=== PATIENT | male | born 1970 | race American Indian/Alaskan Native ===

== ENCOUNTER 2017-01-17 14:53 | Inpatient (IN) | payer SELFPAY ==
[2017-01-17 15:15] LABS: Urine Drugs of Abuse Note Disclamer
--- NOTE | 2017-01-17 15:29 | Emergency Department Report ---
<[email or web address] - Last Filed: 01/18/17 02:11> ED General Adult HPI - General Chief complaint: Psych Stated complaint: EVAL/101 Time Seen by Provider: 01/17/17 15:28 - Related Data Home Medications Medication Instructions Recorded Confirmed Last Taken No Known Home Medications [No 01/18/17 01/18/17 Unknown Reported Home Medications] Allergies Allergy/AdvReac Type Severity Reaction Status Date / Time No Known Allergies Allergy Unverified 06/26/14 09:07 ED Review of Systems ROS: Stated complaint: EVAL/1013 Other details as noted in HPI ED Past Medical Hx - Medications Home Medications: Home Medications Medication Instructions Recorded Confirmed Last Taken Type No Known Home Medications [No 01/18/17 01/18/17 Unknown History Reported Home Medications] ED Course Vital Signs 01/17/17 01/17/17 01/17/17 15:06 15:19 22:21 Temperature 98.9 F 98.1 F Pulse Rate 105 H 85 Respiratory 20 20 20 Rate Blood Pressure 145/92 137/68 [Left] O2 Sat by Pulse 98 98 97 Oximetry 01/17/17 01/18/17 22:22 09:00 Temperature 97.8 F Pulse Rate 73 Respiratory 20 14 Rate Blood Pressure 100/58 [Left] O2 Sat by Pulse 97 97 Oximetry - Reevaluation(s) Reevaluation #4: 01/18/17 01:38 Patient sleeping comfortably trending up slightly of CK but does not have periods of being in any distress MULTIPLE fluid replacement potassium as needed recheck CK. ED Medical Decision Making - Lab Data Result diagrams: 01/17/17 19:35 01/17/17 15:52 Critical care attestation.: If time is entered above; I have spent that time in minutes in the direct care of this critically ill patient, excluding procedure time. ED Disposition Clinical Impression: Rhabdomyolysis, Crack cocaine use Disposition: DC-09 OP ADMIT IP TO THIS HOSP Is pt being admited?: Yes Does the pt Need Aspirin: No Condition: Stable <MARIBELL CORDOVA - Last Filed: 01/19/17 01:32> ED General Adult HPI - General Source: patient, police, EMS (ems notes not available at time of chart dictation), RN notes reviewed, old records reviewed Mode of arrival: Ambulatory Limitations: Other (patient's psychotic and has crack cocaine intoxication) - History of Present Illness Initial comments: This is a 46-year-old male. He has a past medical history of cocaine and crack abuse, and is undomiciled. The patient is brought to the hospital by local police department for evaluation of homicidality and suicidality. As per enclosed documentation, the patient has ingested 7 g of crack, and is endorsing homicidal and suicidal thoughts. To me, the patient denies headache, neck pain, chest pain, abdominal pain and shortness of breath. He requested to eat. He cannot describe exacerbating or relieving factors. -: Gradual Severity scale (0 -10): 0 Quality: other (per hpi) Consistency: other (per hpi) Improves with: other (per hpi) Worsens with: other (per hpi) Associated Symptoms: denies: chest pain ED Review of Systems Constitutional: denies: fever Eyes: denies: vision change ENT: denies: epistaxis Respiratory: denies: cough Cardiovascular: denies: chest pain Gastrointestinal: denies: abdominal pain Genitourinary: denies: dysuria Musculoskeletal: denies: arthralgia Neurological: denies: weakness Psychiatric: homicidal thoughts, suicidal thoughts ED Past Medical Hx - Past Medical History Hx Psychiatric Treatment: Yes - Surgical History Additional Surgical History: denies - Social History Smoking Status: Current Some Day Smoker Substance Use Type: Alcohol, Cocaine ED Physical Exam - General Limitations: Other General appearance: alert, in no apparent distress - Head Head exam: Present: atraumatic, normocephalic - Eye Eye exam: Present: normal appearance, EOMI. Absent: nystagmus - ENT ENT exam: Present: normal exam, normal orophraynx, mucous membranes moist, normal external ear exam - Neck Neck exam: Present: normal inspection, full ROM. Absent: tenderness, meningismus - Respiratory Respiratory exam: Present: normal lung sounds bilaterally. Absent: respiratory distress, wheezes, rales, rhonchi, stridor, chest wall tenderness, accessory muscle use, decreased breath sounds, prolonged expiratory - Cardiovascular Cardiovascular Exam: Present: regular rate, normal rhythm, normal heart sounds. Absent: bradycardia, tachycardia, irregular rhythm, systolic murmur, diastolic murmur, rubs, gallop - GI/Abdominal GI/Abdominal exam: Present: soft, normal bowel sounds. Absent: distended, tenderness, guarding, rebound, rigid, pulsatile mass - Rectal Rectal exam: Present: deferred - Extremities Exam Extremities exam: Present: normal inspection, full ROM, normal capillary refill , other (there are 2+ pulses in the bilateral upper and lower extremities. The compartments are soft. There is no redness, pus or streaking.). Absent: pedal edema, joint swelling, calf tenderness - Back Exam Back exam: Present: normal inspection, full ROM. Absent: tenderness, CVA tenderness (R), CVA tenderness (L), muscle spasm, paraspinal tenderness, vertebral tenderness - Neurological Exam Neurological exam: Present: alert, normal gait, other (Extraocular movements intact. Tongue midline. No facial droop. Facial sensation intact to light touch in the V1, V2, V3 distribution bilaterally. 5 and 5 strength in 4 extremities.. Sensation is intact to light touch in 4 extremities.). Absent: motor sensory deficit - Psychiatric Psychiatric exam: Present: anxious, homicidal ideation, suicidal ideation - Skin Skin exam: Present: warm, dry, intact, normal color. Absent: rash ED Course - Reevaluation(s) Reevaluation #1: 01/17/17 19:32 Differential diagnosis: Crack cocaine intoxication, myositis, rhabdomyolysis, paranoia, medical clearance for psychiatric placement Assessment and plan: 46-year-old male who is homicidal and suicidal, GCS of 15, and her score of 0, walks with a steady gait, also has elevated CK of over 3000. His compartments are soft. There is no redness, pus or streaking. Compartments syndrome very unlikely, patient will be given IV fluids, repeat creatinine kinase is ordered. He requires a 1013. Elevated white blood cell count is appreciated, this may be a stress emargination, or may be related to his recent sympathomimetic ingestion. He is not febrile, does not have a cough, is not encephalopathic, has no neck pain or neck stiffness, has no sore throat, has no pharyngeal discharge, does not have irritative or obstructive urinary symptoms, has an unremarkable urinalysis, and has an unremarkable pulmonary examination. Therefore, I think that serious bacterial infection/sepsis is very unlikely. Reevaluation #2: 01/17/17 20:25 cbc decreased ck pending care transferred to Dr Sepulveda, who will follow up on repeat ck and order additional fluids if necessary he will contact crisis once patient is medically cleared Reevaluation #3: 01/17/17 20:30 ck increasing. additional fluids ordered Dr Sepulveda to follow up ED Medical Decision Making - Lab Data Result diagrams: 01/17/17 19:35 01/18/17 01:43 Vital Signs 01/17/17 01/17/17 15:06 15:19 Temperature 98.9 F Pulse Rate 105 H Respiratory 20 20 Rate Blood Pressure 145/92 [Left] O2 Sat by Pulse 98 98 Oximetry Vital Signs 01/17/17 01/17/17 15:06 15:19 Temperature 98.9 F Pulse Rate 105 H Respiratory 20 20 Rate Blood Pressure 145/92 [Left] O2 Sat by Pulse 98 98 Oximetry Lab Results 01/17/17 01/17/17 01/17/17 Range/Units 15:09 15:09 15:52 WBC (4.5-11.0) K/mm3 RBC (3.65-5.03) M/mm3 Hgb (11.8-15.2) gm/dl Hct (35.5-45.6) % MCV (84-94) fl MCH (28-32) pg MCHC (32-34) % RDW (13.2-15.2) % Plt Count (140-440) K/mm3 Lymph % (Auto) (13.4-35.0) % [place] % (Auto) (0.0-7.3) % Eos % (Auto) (0.0-4.3) % Baso % (Auto) (0.0-1.8) % Lymph # (1.2-5.4) K/mm3 [place] # (0.0-0.8) K/mm3 Eos # (0.0-0.4) K/mm3 Baso # (0.0-0.1) K/mm3 Seg Neutrophils % (40.0-70.0) % Seg Neutrophils # (1.8-7.7) K/mm3 Sodium 140 (137-145) mmol/L Potassium 3.8 (3.6-5.0) mmol/L Chloride 95.2 L (98-107) mmol/L Carbon Dioxide 28 (22-30) mmol/L Anion Gap 21 mmol/L BUN 28 H (9-20) mg/dL Creatinine 1.4 (0.8-1.5) mg/dL Estimated GFR > 60 ml/min BUN/Creatinine Ratio 20.00 % Glucose 97 (75-100) mg/dL Calcium 9.2 (8.4-10.2) mg/dL Total Creatine Kinase (55-170) units/L Urine Color Yellow (Yellow) Urine Turbidity Clear (Clear) Urine pH 5.0 (5.0-7.0) Ur Specific [place] 1.027 (1.003-1.030) Urine Protein 100 mg/dl (Negative) mg/dL Urine Glucose (UA) Neg (Negative) mg/dL Urine Ketones Neg (Negative) mg/dL Urine Blood Lg (Negative) Urine Nitrite Neg (Negative) Urine Bilirubin Neg (Negative) Urine Urobilinogen < 2.0 (<2.0) mg/dL Ur Leukocyte Esterase Neg (Negative) Urine WBC (Auto) 1.0 (0.0-6.0) /HPF Urine RBC (Auto) 9.0 (0.0-6.0) /HPF Salicylates (2.8-20.0) mg/dL Urine Opiates Screen Presumptive negative Urine Methadone Screen Presumptive negative Acetaminophen (10.0-30.0) ug/mL Ur Barbiturates Screen Presumptive negative Ur Phencyclidine Scrn Presumptive negative Ur Amphetamines Screen Presumptive negative U Benzodiazepines Scrn Presumptive negative Urine Cocaine Screen Presumptive positive U Marijuana (THC) Screen Presumptive negative Drugs of Abuse Note Disclamer Plasma/Serum Alcohol (0-0.07) gm% 01/17/17 01/17/17 01/17/17 Range/Units 15:52 15:52 15:52 WBC 19.5 H (4.5-11.0) K/mm3 RBC 4.50 (3.65-5.03) M/mm3 Hgb 12.7 (11.8-15.2) gm/dl Hct 38.8 (35.5-45.6) % MCV 86 (84-94) fl MCH 28 (28-32) pg MCHC 33 (32-34) % RDW 13.8 (13.2-15.2) % Plt Count 209 (140-440) K/mm3 Lymph % (Auto) 13.4 (13.4-35.0) % [place] % (Auto) 10.3 H (0.0-7.3) % Eos % (Auto) 0.0 (0.0-4.3) % Baso % (Auto) 0.3 (0.0-1.8) % Lymph # 2.6 (1.2-5.4) K/mm3 [place] # 2.0 H (0.0-0.8) K/mm3 Eos # 0.0 (0.0-0.4) K/mm3 Baso # 0.1 (0.0-0.1) K/mm3 Seg Neutrophils % 76.0 H (40.0-70.0) % Seg Neutrophils # 14.8 H (1.8-7.7) K/mm3 Sodium (137-145) mmol/L Potassium (3.6-5.0) mmol/L Chloride (98-107) mmol/L Carbon Dioxide (22-30) mmol/L Anion Gap mmol/L BUN (9-20) mg/dL Creatinine (0.8-1.5) mg/dL Estimated GFR ml/min BUN/Creatinine Ratio % Glucose (75-100) mg/dL Calcium (8.4-10.2) mg/dL Total Creatine Kinase 3441 H (55-170) units/L Urine Color (Yellow) Urine Turbidity (Clear) Urine pH (5.0-7.0) Ur Specific [place] (1.003-1.030) Urine Protein (Negative) mg/dL Urine Glucose (UA) (Negative) mg/dL Urine Ketones (Negative) mg/dL Urine Blood (Negative) Urine Nitrite (Negative) Urine Bilirubin (Negative) Urine Urobilinogen (<2.0) mg/dL Ur Leukocyte Esterase (Negative) Urine WBC (Auto) (0.0-6.0) /HPF Urine RBC (Auto) (0.0-6.0) /HPF Salicylates (2.8-20.0) mg/dL Urine Opiates Screen Urine Methadone Screen Acetaminophen (10.0-30.0) ug/mL Ur Barbiturates Screen Ur Phencyclidine Scrn Ur Amphetamines Screen U Benzodiazepines Scrn Urine Cocaine Screen U Marijuana (THC) Screen Drugs of Abuse Note Plasma/Serum Alcohol < 0.01 (0-0.07) gm% 01/17/17 01/17/17 Range/Units 15:52 15:52 WBC (4.5-11.0) K/mm3 RBC (3.65-5.03) M/mm3 Hgb (11.8-15.2) gm/dl Hct (35.5-45.6) % MCV (84-94) fl MCH (28-32) pg MCHC (32-34) % RDW (13.2-15.2) % Plt Count (140-440) K/mm3 Lymph % (Auto) (13.4-35.0) % [place] % (Auto) (0.0-7.3) % Eos % (Auto) (0.0-4.3) % Baso % (Auto) (0.0-1.8) % Lymph # (1.2-5.4) K/mm3 [place] # (0.0-0.8) K/mm3 Eos # (0.0-0.4) K/mm3 Baso # (0.0-0.1) K/mm3 Seg Neutrophils % (40.0-70.0) % Seg Neutrophils # (1.8-7.7) K/mm3 Sodium (137-145) mmol/L Potassium (3.6-5.0) mmol/L Chloride (98-107) mmol/L Carbon Dioxide (22-30) mmol/L Anion Gap mmol/L BUN (9-20) mg/dL Creatinine (0.8-1.5) mg/dL Estimated GFR ml/min BUN/Creatinine Ratio % Glucose (75-100) mg/dL Calcium (8.4-10.2) mg/dL Total Creatine Kinase (55-170) units/L Urine Color (Yellow) Urine Turbidity (Clear) Urine pH (5.0-7.0) Ur Specific [place] (1.003-1.030) Urine Protein (Negative) mg/dL Urine Glucose (UA) (Negative) mg/dL Urine Ketones (Negative) mg/dL Urine Blood (Negative) Urine Nitrite (Negative) Urine Bilirubin (Negative) Urine Urobilinogen (<2.0) mg/dL Ur Leukocyte Esterase (Negative) Urine WBC (Auto) (0.0-6.0) /HPF Urine RBC (Auto) (0.0-6.0) /HPF Salicylates < 0.3 L (2.8-20.0) mg/dL Urine Opiates Screen Urine Methadone Screen Acetaminophen < 15.0 (10.0-30.0) ug/mL Ur Barbiturates Screen Ur Phencyclidine Scrn Ur Amphetamines Screen U Benzodiazepines Scrn Urine Cocaine Screen U Marijuana (THC) Screen Drugs of Abuse Note Plasma/Serum Alcohol (0-0.07) gm% ED Disposition Is pt being admited?: Yes Does the pt Need Aspirin: No
[2017-01-17 15:38] LABS: Bilirubin,Urine NEG (Negative); Blood,Urine LG (Negative); Ketones,Urine NEG (Negative); Leukocyte Esterase,Urine NEG (Negative); Nitrite,Urine NEG (Negative); Urobilinogen,Urine < 2.0 mg/dL (<2.0)
[2017-01-17 16:12] LABS: Basophils % (Auto) 0.3 % (0.0-1.8); Hematocrit 38.8 % (35.5-45.6); Hemoglobin 12.7 gm/dl (11.8-15.2); Mean Corpuscular HGB Conc 33 % (32-34); Mean Corpuscular Hemoglobin 28 pg (28-32); Mean Corpuscular Volume 86 fl (84-94); Platelet Count 209 K/mm3 (140-440); Red Cell Distribution Width 13.8 % (13.2-15.2); White Blood Count 19.5 K/mm3 (4.5-11.0)
[2017-01-17 16:29] LABS: Anion Gap 21 mmol/L; Blood Urea Nitrogen 28 mg/dL (9-20); Calcium 9.2 mg/dL (8.4-10.2); Carbon Dioxide 28 mmol/L (22-30); Chloride 95.2 mmol/L (98-107); Glucose 97 mg/dL (75-100); Potassium 3.8 mmol/L (3.6-5.0); Sodium 140 mmol/L (137-145)
[2017-01-17] MEDS ORDERED: ATIVAN IM PRN (17:28)
[2017-01-17] MEDS ORDERED: NACL 0.9% 1000 ML 2,000 ML IV ONE ×2 (17:28→20:29)
[2017-01-17 20:01] LABS: Hematocrit 36.7 % (35.5-45.6); Mean Corpuscular HGB Conc 33 % (32-34); Mean Corpuscular Hemoglobin 28 pg (28-32); Mean Corpuscular Volume 85 fl (84-94); Platelet Count 183 K/mm3 (140-440); Red Blood Count 4.31 M/mm3 (3.65-5.03)
[2017-01-18] MEDS ORDERED: NACL 0.9% 1000 ML 1,000 ML IV ONE (01:02)
[2017-01-18 02:29] LABS: Anion Gap 14 mmol/L; Blood Urea Nitrogen 20 mg/dL (9-20); Carbon Dioxide 24 mmol/L (22-30); Chloride 106.7 mmol/L (98-107); Glucose 116 mg/dL (75-100); Potassium 3.8 mmol/L (3.6-5.0); Sodium 141 mmol/L (137-145)
[2017-01-18 02:47] LABS: Calcium 7.8 mg/dL (8.4-10.2)
[2017-01-18] MEDS ORDERED: DULCOLAX PR PRN (10:00)
[2017-01-18] MEDS ORDERED: ZOFRAN IV PRN (10:00)
[2017-01-18] MEDS ORDERED: MILK OF MAGNESIA PO PRN (10:00)
[2017-01-18] MEDS ORDERED: TYLENOL PO PRN (10:00)
[2017-01-18] MEDS: HEPARIN SUB-Q SCH ×2 (10:44→17:02)
--- NOTE | 2017-01-18 11:57 | History and Physical Report ---
History of Present Illness Date of examination: 01/18/17 Date of admission: 01/18/17 06:51 Chief complaint: History of crack use and exhibiting homicidal and suicidal ideations History of present illness: 46-year-old -British male with no known past medical conditions except depression for which he never sought any medical attention, was apparently picked up by the police after using 7 g of crack cocaine and subsequently exhibiting suicidal and homicidal ideations. He was noted to have increased CPK and elevated white blood cell count and is now admitted for management of possible rhabdomyolysis. He is under 1013. At this time patient is fully alert and oriented and offers no specific complaints he denies any suicidal or homicidal ideations. He denies any fever or chills sore throat dysphagia nasal congestion or headaches or weight loss Denies any dizziness or loss of consciousness Denies any exertional chest pain palpitations Denies cough or shortness of breath Denies abdominal pain nausea or vomiting or melena Denies any dysuria or urinary frequency or incontinence Past History Past Medical History: No medical history Past Surgical History: No surgical history Social history: smoking, other (crack cocaine). denies: alcohol abuse Family history: no significant family history Medications and Allergies Allergies Allergy/AdvReac Type Severity Reaction Status Date / Time No Known Allergies Allergy Unverified 06/26/14 09:07 Home Medications Medication Instructions Recorded Confirmed Last Taken Type No Known Home Medications [No 01/18/17 01/18/17 Unknown History Reported Home Medications] Active Meds: Active Medications Acetaminophen (Tylenol) 650 mg PO Q4H PRN PRN Reason: Pain MILD(1-3)/Fever >100.5/MONTERROSO Bisacodyl (Dulcolax) 10 mg VA QDAY PRN PRN Reason: Constipation unrelieved by MOM Heparin Sodium (Porcine) (Heparin) 5,000 unit SUB-Q Q8H FELIPE Last Admin: 01/18/17 10:44 Dose: Not Given Sodium Chloride (Nacl 0.9% 1000 Ml) 1,000 mls @ 150 mls/hr IV DIRECT FELIPE Lorazepam (Ativan) 2 mg IM Q4HR PRN PRN Reason: Agitation Last Admin: 01/17/17 17:43 Dose: 2 mg Magnesium Hydroxide (Milk Of Magnesia) 30 ml PO Q4H PRN PRN Reason: Constipation Ondansetron HCl (Zofran) 4 mg IV Q8H PRN PRN Reason: N/V unrelieved by Reglan Sertraline HCl (Zoloft) 50 mg PO QDAY FELIPE Review of Systems All systems: negative (as stated above in the history of present illness) Exam - Constitutional Vitals: Temp Pulse Resp BP Pulse Ox 98.2 F 75 20 91/59 97 01/18/17 10:21 01/18/17 10:21 01/18/17 10:21 01/18/17 10:21 01/18/17 10:21 General appearance: Present: no acute distress, well-nourished - EENT Eyes: Present: PERRL, EOM intact ENT: hearing intact, clear oral mucosa, no thrush - Neck Neck: Present: supple, normal ROM. Absent: masses or JVD - Respiratory Respiratory effort: normal Respiratory: bilateral: CTA - Cardiovascular Rhythm: regular Heart Sounds: Present: S1 & S2 - Extremities Extremities: No edema - Abdominal General gastrointestinal: Present: soft, non-tender. Absent: hepatomegaly, splenomegaly - Rectal Rectal Exam: deferred - Integumentary Integumentary: Present: clear - Musculoskeletal Musculoskeletal: strength equal bilaterally - Psychiatric Psychiatric: appropriate mood/affect - Neurologic Neurologic: CNII-XII intact, no focal deficits Results - Labs CBC & Chem 7: 01/17/17 19:35 01/18/17 01:43 Assessment and Plan - Patient Problems (1) Rhabdomyolysis Current Visit: Yes Status: Acute Qualifiers: Rhabdomyolysis type: R Encounter type: E Plan to address problem: Continue IV fluids with normal saline and monitor CPK (2) Neutrophilic leukocytosis Current Visit: Yes Status: Acute Plan to address problem: Trending down Likely acute phase reactant No evidence of any infection Monitor CBC (3) Depression Current Visit: Yes Status: Chronic Qualifiers: Depression Type: major depressive disorder Major depression recurrence: single episode Major depression episode severity: moderate Psychotic features: P Trimester: T Plan to address problem: We will start the patient on SSRI and we will request psychiatry evaluation Patient denies any suicidal or homicidal ideations at this time (4) Crack cocaine use Current Visit: Yes Status: Acute Plan to address problem: We will request psychiatric evaluation
[2017-01-18] MEDS: HABITROL TD SCH ×3 (12:25→14:51)
[2017-01-18] MEDS: ZOLOFT PO SCH (12:25)
[2017-01-18] MEDS: NACL 0.9% 1000 ML 1,000 ML IV SCH (20:50)
--- NOTE | 2017-01-18 22:46 | Consultation ---
History of Present Illness - Reason for Consult Consult date: 01/18/17 Reason for consult: homicidal ideation - Chief Complaint Chief complaint: "depressed" This is a 46-year-old male. He has a past medical history of cocaine and crack abuse, and is undomiciled. The patient is brought to the hospital by local police department for evaluation of homicidality and suicidality. He reports going to a rehab and when interviewed for the program, he was recommended to go to the ER. He has been admitted for rhabdomyolsis. Per the record the patient has ingested 7 g of crack, and is endorsing homicidal and suicidal thoughts. 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 He reports AVH occurring with increasing crack/cocaine use. He reports using it daily. He reports depression, isolation, and has homicidal ideation toward people who seem to be "purposeless."He denies wanting to harm someone specifically or having a plan. He reports paranoia and was observed looking around the room intermittently. He states his anger is a problem. He plans to return to [facility]. He went previously for similar reasons, crack/cocaine addiction. He denies use of alcohol or other substance use. He is not sure if he wants medication for mood. Medications and Allergies Allergies Allergy/AdvReac Type Severity Reaction Status Date / Time No Known Allergies Allergy Unverified 06/26/14 09:07 Home Medications Medication Instructions Recorded Confirmed Last Taken Type No Known Home Medications [No 01/18/17 01/18/17 Unknown History Reported Home Medications] Active Meds: Active Medications Acetaminophen (Tylenol) 650 mg PO Q4H PRN PRN Reason: Pain MILD(1-3)/Fever >100.5/MONTERROSO Bisacodyl (Dulcolax) 10 mg PA QDAY PRN PRN Reason: Constipation unrelieved by MOM Heparin Sodium (Porcine) (Heparin) 5,000 unit SUB-Q Q8H FELIPE Last Admin: 01/18/17 17:02 Dose: Not Given Sodium Chloride (Nacl 0.9% 1000 Ml) 1,000 mls @ 150 mls/hr IV DIRECT FELIPE Last Admin: 01/18/17 20:50 Dose: 150 mls/hr Lorazepam (Ativan) 2 mg IM Q4HR PRN PRN Reason: Agitation Last Admin: 01/17/17 17:43 Dose: 2 mg Magnesium Hydroxide (Milk Of Magnesia) 30 ml PO Q4H PRN PRN Reason: Constipation Nicotine (Habitrol) 21 mg TD Q24H [facility] Last Admin: 01/18/17 14:51 Dose: Not Given Ondansetron HCl (Zofran) 4 mg IV Q8H PRN PRN Reason: N/V unrelieved by Reglan Sertraline HCl (Zoloft) 50 mg PO QDAY [facility] Last Admin: 01/18/17 12:25 Dose: 50 mg Past psychiatric history - Past Medical History Past Medical History: No medical history Past Surgical History: No surgical history Mental Status Exam - Vital signs Last Vital Signs Temp 0 F L 01/18/17 21:00 Pulse 74 01/18/17 21:00 Resp 20 01/18/17 21:00 BP 115/72 01/18/17 21:00 Pulse Ox 97 01/18/17 21:00 Results Result Diagrams: 01/17/17 19:35 01/18/17 01:43 All other labs normal. Assessment and Plan Assessment and plan: - Exam Narrative exam: + depression, aloof Orientation: person, place, time Affect: constricted Mood: irritable, depression Thought content: homicidal ideation Perceptions: AVH of hearing people have sex and seeing a woman Speech: regular rate and rhythm Level of consciousness: alert Interaction: cooperative Impression: daily crack/cocaine use homicidal ideation-no plan or target Substance induced mood disorder/psychosis Differential diagnosis: major depressive disorder, bipolar disorder Recommendation: Start SEroquel 50mg hs for mood and psychotic symptoms. Risks and benefits explained. Metabolic effects are a risk and this was explained. [address] Transfer to psychiatric facility once medically cleared.
[2017-01-19] MEDS: HEPARIN SUB-Q SCH ×3 (01:57→17:15)
[2017-01-19] MEDS: NACL 0.9% 1000 ML 1,000 ML IV SCH ×4 (03:02→22:45)
[2017-01-19 05:30] LABS: Eosinophils % (Auto) 2.2 % (0.0-4.3); Hematocrit 34.6 % (35.5-45.6); Hemoglobin 11.6 gm/dl (11.8-15.2); Mean Corpuscular HGB Conc 34 % (32-34); Mean Corpuscular Hemoglobin 29 pg (28-32); Mean Corpuscular Volume 86 fl (84-94); Platelet Count 165 K/mm3 (140-440); Red Blood Count 4.03 M/mm3 (3.65-5.03); Red Cell Distribution Width 13.7 % (13.2-15.2); White Blood Count 7.8 K/mm3 (4.5-11.0)
[2017-01-19 05:38] LABS: Anion Gap 13 mmol/L; BUN/Creatinine Ratio 12.22; Blood Urea Nitrogen 11 mg/dL (9-20); Calcium 8.1 mg/dL (8.4-10.2); Carbon Dioxide 28 mmol/L (22-30); Chloride 105.4 mmol/L (98-107); Creatine Kinase 1883 units/L (55-170); Glucose 91 mg/dL (75-100); Sodium 142 mmol/L (137-145)
[2017-01-19] MEDS: ZOLOFT PO SCH (09:33)
--- NOTE | 2017-01-19 10:11 | Discharge Summary ---
Providers - Providers Date of Admission: 01/18/17 06:51 Date of discharge: 01/20/17 Attending physician: COLTON EVANGELISTA MD Primary care physician: [facility] Hospitalization Reason for admission: rhabdomyolysis, drug abuse Condition: Stable Disposition: DC-30 STILL A PATIENT Time spent for discharge: 31 minutes - Discharge Diagnoses (1) Crack cocaine use Status: Acute (2) Neutrophilic leukocytosis Status: Acute (3) Rhabdomyolysis Status: Acute Qualifiers: Rhabdomyolysis type: R Encounter type: E (4) Depression Status: Chronic Qualifiers: Depression Type: major depressive disorder Major depression recurrence: single episode Active/Remission status: A Major depression episode severity : moderate Psychotic features: P Trimester: T Qualified Code(s): F32.1 - Major depressive disorder, single episode, moderate Core Measure Documentation - Palliative Care Palliative Care/ Comfort Measures: Not Applicable - Core Measures Any of the following diagnoses?: none Exam - Constitutional Vitals: Temp Pulse Resp BP Pulse Ox 0 F L 70 20 115/72 97 01/18/17 21:00 01/19/17 08:00 01/18/17 21:00 01/18/17 21:00 01/18/17 21:00 Plan Activity: no restrictions Weight Bearing Status: Full Weight Bearing Diet: regular Special Instructions: smoking cessation Follow up with: AMARA RIVERA MD [Primary Care Provider] - 3-5 Days Prescriptions: QUEtiapine [SEROquel] 50 mg PO QHS #30 tablet Nicotine [Habitrol] 21 mg TD Q24H #7 patch Sertraline [Zoloft] 50 mg PO QDAY #30 tablet
[2017-01-19] MEDS: HABITROL TD SCH (15:27)
--- NOTE | 2017-01-19 22:20 | Progress Note ---
Subjective - Reason for Consult Consult date: 01/19/17 Reason for consult: follow up - Chief Complaint Chief complaint: "My thoughts are clear" This is a 46-year-old male. He has a past medical history of cocaine and crack abuse, and is undomiciled. The patient was brought to the hospital by local police department for evaluation of homicidality and suicidality. He reports going to a rehab and when interviewed for the program, he was recommended to go to the ER. He has been admitted for rhabdomyolsis. He initially reported vague homicidal ideation. He reported AVH occurring with increasing crack/cocaine use. He reports using it daily. He denies wanting to harm someone specifically or having a plan. He states his anger is a problem. He plans to return to [facility]. He went previously for similar reasons, crack/cocaine addiction. He denies use of alcohol or other substance use. He reports continued difficulty sleeping and no response to Seroquel 50mg hs. Mental Status Exam - Vital signs Last Vital Signs Temp 98.7 F 01/19/17 20:59 Pulse 78 01/19/17 20:59 Resp 18 01/19/17 20:59 BP 114/74 01/19/17 20:59 Pulse Ox 97 01/19/17 20:59 Assessment and Plan - Exam Narrative exam: + depression Orientation: person, place, time Affect: constricted Mood: less irritable Thought content: no homicidal ideation today. No suicidal ideation. Perceptions: No reports of AVH today Speech: regular rate and rhythm Level of consciousness: alert Interaction: cooperative Impression: daily crack/cocaine use No SI/HI today Substance induced mood disorder/psychosis Differential diagnosis: major depressive disorder, bipolar disorder Recommendation: Increase Seroquel to 100mg hs for mood [address] Will reevaluate tomorrow to determine appropriate disposition
[2017-01-20] MEDS: HEPARIN SUB-Q SCH ×2 (02:32→10:45)
--- NOTE | 2017-01-20 07:28 | Progress Note ---
Assessment and Plan Assessment and plan: Rhabdomyolysis - Rsolved - Was treated with IV fluids Crack cocaine use - patient counselled - Psych consult appreciated Major depression - patient started with antidepressants Leukocytosis - Likely reactive resolved Disposition - He is on 1013 - Per Psych, patient is medically cleared - Patient Problems (1) Crack cocaine use Current Visit: Yes Status: Acute (2) Neutrophilic leukocytosis Current Visit: Yes Status: Acute (3) Rhabdomyolysis Current Visit: Yes Status: Acute Qualifiers: Rhabdomyolysis type: R Encounter type: E (4) Depression Current Visit: Yes Status: Chronic Qualifiers: Depression Type: major depressive disorder Major depression recurrence: single episode Active/Remission status: A Major depression episode severity : moderate Psychotic features: P Trimester: T History Interval history: patient was seen and evaluated at the bedside, patient denied suicidal ideation , patient denied any pain. Hospitalist Physical - Physical exam Narrative exam: Not in cardiopulmonary distress. The patient appeared well nourished and normally developed. Vital signs as documented. Head exam is unremarkable. No scleral icterus . Neck is without jugular venous distension, thyromegaly, or carotid bruits. Lungs are clear to auscultation. Cardiac exam reveals regular rate and Rhythm. Abdominal exam reveals normal bowel sounds. Extremities are nonedematous and both femoral and pedal pulses are normal. 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 - Constitutional Vitals: Temp Pulse Resp BP Pulse Ox 98.7 F 80 20 114/74 98 01/19/17 20:59 01/20/17 00:04 01/19/17 22:00 01/19/17 20:59 01/19/17 22:00 General appearance: Present: no acute distress, well-nourished Results - Labs CBC & Chem 7: 01/19/17 04:59 01/19/17 04:59 Labs: Laboratory Last Values WBC 7.8 K/mm3 (4.5-11.0) 01/19/17 04:59 RBC 4.03 M/mm3 (3.65-5.03) 01/19/17 04:59 Hgb 11.6 gm/dl (11.8-15.2) L 01/19/17 04:59 Hct 34.6 % (35.5-45.6) L 01/19/17 04:59 MCV 86 fl (84-94) 01/19/17 04:59 MCH 29 pg (28-32) 01/19/17 04:59 MCHC 34 % (32-34) 01/19/17 04:59 RDW 13.7 % (13.2-15.2) 01/19/17 04:59 Plt Count 165 K/mm3 (140-440) 01/19/17 04:59 Lymph % (Auto) 38.6 % (13.4-35.0) H 01/19/17 04:59 [place] % (Auto) 9.6 % (0.0-7.3) H 01/19/17 04:59 Eos % (Auto) 2.2 % (0.0-4.3) 01/19/17 04:59 Baso % (Auto) 1.0 % (0.0-1.8) 01/19/17 04:59 Lymph # 3.0 K/mm3 (1.2-5.4) 01/19/17 04:59 [place] # 0.7 K/mm3 (0.0-0.8) 01/19/17 04:59 Eos # 0.2 K/mm3 (0.0-0.4) 01/19/17 04:59 Baso # 0.1 K/mm3 (0.0-0.1) 01/19/17 04:59 Seg Neutrophils % 48.6 % (40.0-70.0) 01/19/17 04:59 Seg Neutrophils # 3.8 K/mm3 (1.8-7.7) 01/19/17 04:59 Sodium 142 mmol/L (137-145) 01/19/17 04:59 Potassium 4.0 mmol/L (3.6-5.0) 01/19/17 04:59 Chloride 105.4 mmol/L (98-107) 01/19/17 04:59 Carbon Dioxide 28 mmol/L (22-30) 01/19/17 04:59 Anion Gap 13 mmol/L 01/19/17 04:59 BUN 11 mg/dL (9-20) 01/19/17 04:59 Creatinine 0.9 mg/dL (0.8-1.5) 01/19/17 04:59 Estimated GFR > 60 ml/min 01/19/17 04:59 BUN/Creatinine Ratio 12.22 % 01/19/17 04:59 Glucose 91 mg/dL (75-100) 01/19/17 04:59 Calcium 8.1 mg/dL (8.4-10.2) L 01/19/17 04:59 Total Creatine Kinase 1883 units/L (55-170) H 01/19/17 04:59 Urine Color Yellow (Yellow) 01/17/17 15:09 Urine Turbidity Clear (Clear) 01/17/17 15:09 Urine pH 5.0 (5.0-7.0) 01/17/17 15:09 Ur Specific [place] 1.027 (1.003-1.030) 01/17/17 15:09 Urine Protein 100 mg/dl mg/dL (Negative) 01/17/17 15:09 Urine Glucose (UA) Neg mg/dL (Negative) 01/17/17 15:09 Urine Ketones Neg mg/dL (Negative) 01/17/17 15:09 Urine Blood Lg (Negative) 01/17/17 15:09 Urine Nitrite Neg (Negative) 01/17/17 15:09 Urine Bilirubin Neg (Negative) 01/17/17 15:09 Urine Urobilinogen < 2.0 mg/dL (<2.0) 01/17/17 15:09 Ur Leukocyte Esterase Neg (Negative) 01/17/17 15:09 Urine WBC (Auto) 1.0 /HPF (0.0-6.0) 01/17/17 15:09 Urine RBC (Auto) 9.0 /HPF (0.0-6.0) 01/17/17 15:09 Salicylates < 0.3 mg/dL (2.8-20.0) L 01/17/17 15:52 Urine Opiates Screen Presumptive negative 01/17/17 15:09 Urine Methadone Screen Presumptive negative 01/17/17 15:09 Acetaminophen < 15.0 ug/mL (10.0-30.0) 01/17/17 15:52 Ur Barbiturates Screen Presumptive negative 01/17/17 15:09 Ur Phencyclidine Scrn Presumptive negative 01/17/17 15:09 Ur Amphetamines Screen Presumptive negative 01/17/17 15:09 U Benzodiazepines Scrn Presumptive negative 01/17/17 15:09 Urine Cocaine Screen Presumptive positive 01/17/17 15:09 U Marijuana (THC) Screen Presumptive negative 01/17/17 15:09 Drugs of Abuse Note Disclamer 01/17/17 15:09 Plasma/Serum Alcohol < 0.01 gm% (0-0.07) 01/17/17 15:52
[2017-01-20] MEDS: ZOLOFT PO SCH (10:45)
[2017-01-20] MEDS: HABITROL TD SCH (14:31)
--- NOTE | 2017-01-20 15:34 | Progress Note ---
Assessment and Plan Assessment and plan: Rhabdomyolysis - Rsolved - Was treated with IV fluids Crack cocaine use - patient counselled - Psych consult appreciated Major depression - patient started with antidepressants Leukocytosis - Likely reactive resolved Disposition - He is on 1013 - Patient is cleared medically for discharge. - Patient Problems (1) Crack cocaine use Current Visit: Yes Status: Acute (2) Neutrophilic leukocytosis Current Visit: Yes Status: Acute (3) Rhabdomyolysis Current Visit: Yes Status: Acute Qualifiers: Rhabdomyolysis type: R Encounter type: E (4) Depression Current Visit: Yes Status: Chronic Qualifiers: Depression Type: major depressive disorder Major depression recurrence: single episode Active/Remission status: A Major depression episode severity : moderate Psychotic features: P Trimester: T Qualified Code(s): F32.1 - Major depressive disorder, single episode, moderate History Interval history: patient was seen and evaluated at the bedside, patient denied suicidal ideation , patient denied any pain. Hospitalist Physical - Physical exam Narrative exam: Not in cardiopulmonary distress. The patient appeared well nourished and normally developed. Vital signs as documented. Head exam is unremarkable. No scleral icterus . Neck is without jugular venous distension, thyromegaly, or carotid bruits. Lungs are clear to auscultation. Cardiac exam reveals regular rate and Rhythm. Abdominal exam reveals normal bowel sounds. Extremities are nonedematous and both femoral and pedal pulses are normal. 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 - Constitutional Vitals: Temp Pulse Resp BP Pulse Ox 98.2 F 80 16 105/67 96 01/20/17 13:11 01/20/17 13:11 01/20/17 13:11 01/20/17 13:11 01/20/17 09:06 General appearance: Present: no acute distress, well-nourished Results - Labs CBC & Chem 7: 01/19/17 04:59 01/19/17 04:59 Labs: Laboratory Last Values WBC 7.8 K/mm3 (4.5-11.0) 01/19/17 04:59 RBC 4.03 M/mm3 (3.65-5.03) 01/19/17 04:59 Hgb 11.6 gm/dl (11.8-15.2) L 01/19/17 04:59 Hct 34.6 % (35.5-45.6) L 01/19/17 04:59 MCV 86 fl (84-94) 01/19/17 04:59 MCH 29 pg (28-32) 01/19/17 04:59 MCHC 34 % (32-34) 01/19/17 04:59 RDW 13.7 % (13.2-15.2) 01/19/17 04:59 Plt Count 165 K/mm3 (140-440) 01/19/17 04:59 Lymph % (Auto) 38.6 % (13.4-35.0) H 01/19/17 04:59 [place] % (Auto) 9.6 % (0.0-7.3) H 01/19/17 04:59 Eos % (Auto) 2.2 % (0.0-4.3) 01/19/17 04:59 Baso % (Auto) 1.0 % (0.0-1.8) 01/19/17 04:59 Lymph # 3.0 K/mm3 (1.2-5.4) 01/19/17 04:59 [place] # 0.7 K/mm3 (0.0-0.8) 01/19/17 04:59 Eos # 0.2 K/mm3 (0.0-0.4) 01/19/17 04:59 Baso # 0.1 K/mm3 (0.0-0.1) 01/19/17 04:59 Seg Neutrophils % 48.6 % (40.0-70.0) 01/19/17 04:59 Seg Neutrophils # 3.8 K/mm3 (1.8-7.7) 01/19/17 04:59 Sodium 142 mmol/L (137-145) 01/19/17 04:59 Potassium 4.0 mmol/L (3.6-5.0) 01/19/17 04:59 Chloride 105.4 mmol/L (98-107) 01/19/17 04:59 Carbon Dioxide 28 mmol/L (22-30) 01/19/17 04:59 Anion Gap 13 mmol/L 01/19/17 04:59 BUN 11 mg/dL (9-20) 01/19/17 04:59 Creatinine 0.9 mg/dL (0.8-1.5) 01/19/17 04:59 Estimated GFR > 60 ml/min 01/19/17 04:59 BUN/Creatinine Ratio 12.22 % 01/19/17 04:59 Glucose 91 mg/dL (75-100) 01/19/17 04:59 Calcium 8.1 mg/dL (8.4-10.2) L 01/19/17 04:59 Total Creatine Kinase 1883 units/L (55-170) H 01/19/17 04:59 Urine Color Yellow (Yellow) 01/17/17 15:09 Urine Turbidity Clear (Clear) 01/17/17 15:09 Urine pH 5.0 (5.0-7.0) 01/17/17 15:09 Ur Specific [place] 1.027 (1.003-1.030) 01/17/17 15:09 Urine Protein 100 mg/dl mg/dL (Negative) 01/17/17 15:09 Urine Glucose (UA) Neg mg/dL (Negative) 01/17/17 15:09 Urine Ketones Neg mg/dL (Negative) 01/17/17 15:09 Urine Blood Lg (Negative) 01/17/17 15:09 Urine Nitrite Neg (Negative) 01/17/17 15:09 Urine Bilirubin Neg (Negative) 01/17/17 15:09 Urine Urobilinogen < 2.0 mg/dL (<2.0) 01/17/17 15:09 Ur Leukocyte Esterase Neg (Negative) 01/17/17 15:09 Urine WBC (Auto) 1.0 /HPF (0.0-6.0) 01/17/17 15:09 Urine RBC (Auto) 9.0 /HPF (0.0-6.0) 01/17/17 15:09 Salicylates < 0.3 mg/dL (2.8-20.0) L 01/17/17 15:52 Urine Opiates Screen Presumptive negative 01/17/17 15:09 Urine Methadone Screen Presumptive negative 01/17/17 15:09 Acetaminophen < 15.0 ug/mL (10.0-30.0) 01/17/17 15:52 Ur Barbiturates Screen Presumptive negative 01/17/17 15:09 Ur Phencyclidine Scrn Presumptive negative 01/17/17 15:09 Ur Amphetamines Screen Presumptive negative 01/17/17 15:09 U Benzodiazepines Scrn Presumptive negative 01/17/17 15:09 Urine Cocaine Screen Presumptive positive 01/17/17 15:09 U Marijuana (THC) Screen Presumptive negative 01/17/17 15:09 Drugs of Abuse Note Disclamer 01/17/17 15:09 Plasma/Serum Alcohol < 0.01 gm% (0-0.07) 01/17/17 15:52
--- NOTE | 2017-01-20 15:36 | Progress Note ---
Subjective - Reason for Consult Consult date: 01/20/17 Reason for consult: Psychiatry Follow-up - Chief Complaint Chief complaint: "Much better todayr " This is a 46-year-old male. Today patient is calm and cooperative during the assessment. He stated that he must stay off the "crack" if he want his life to be stable. He stated that he will return back to [facility] (residence rehab services) once discharged. He stated that he got rest last night which allowed him to clear his mind. He denies SI/HI's, AVH's, and depression like symptoms. Per the staff, patient has been appropriate. Patient stated no side effect sof his medications Mental Status Exam - Vital signs Last Vital Signs Temp 98.2 F 01/20/17 13:11 Pulse 80 01/20/17 13:11 Resp 16 01/20/17 13:11 BP 105/67 01/20/17 13:11 Pulse Ox 96 01/20/17 09:06 - Exam Narrative exam: MSE: Appearance: cooperative, calm Behavior: good eye contact Speech: regular rate and tone Mood: "much better" Affect: congruent to mood Thought Process: linear Thought Content: denies HI/SI's and AVH's Motor Activity: ambulatory Cognition: A/Ox 3 Insight: fair Judgment: fair Assessment and Plan Impression: Substance Induced Mood DO. Substance Use DO (Cocaine). Today patient is calm and cooperative during the assessment. Patient is no threat to self or others. Recommendation/Plan: Rescind 1013. Patient will return to [facility] ( residence rehab services) once discharged.
[2017-01-20 16:13] VITALS: BP 103/68
== END 2017-01-20 18:29 | disposition home or self-care (01) | DRG 558 ==
LOC: ED 14:53 → 4A 01-18 06:51 → UNDODISIN 01-19 15:58 → 4A 01-20 17:20
PROVIDERS: ADMIT Internal Medicine; ATTEND Internal Medicine
DX: M62.82 Rhabdomyolysis (principal); F32.1 Major depressive disorder, single episode, moderate; D72.829 Elevated white blood cell count, unspecified; F14.90 Cocaine use, unspecified, uncomplicated; R45.850 Homicidal ideations; Z71.51 Drug abuse counseling and surveillance of drug abuser
CPT/HCPCS: 36415; 80048; 80307; 80320; 81001; 82550; 85025; 85027; 93005; 93010; 96360; 96361; 96372; G0480; J1644; J2060; J7030

== ENCOUNTER 2017-06-26 03:32 | Emergency (ER) | payer OTHER ==
[2017-06-26 04:03] VITALS: BP 110/65
[2017-06-26] MEDS ORDERED: MOTRIN PO ONE (04:29)
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
== END 2017-06-26 05:12 | disposition home or self-care (01) ==
LOC: ED 03:32
DX: S39.012A Strain of muscle, fascia and tendon of lower back, initial encounter (principal); F17.200 Nicotine dependence, unspecified, uncomplicated; F12.10 Cannabis abuse, uncomplicated; V19.9XXA Pedal cyclist (driver) (passenger) injured in unspecified traffic accident, initial encounter; Y93.89 Activity, other specified; Y92.89 Other specified places as the place of occurrence of the external cause; Y99.8 Other external cause status
CPT/HCPCS: 99282

== ENCOUNTER 2018-11-30 13:28 | Emergency (ER) | payer OTHER ==
[2018-11-30 14:16] LABS: Amphetamine Screen,Urine PRESUMPTIVE NEGATIVE; Benzodiazepines Screen,Urine PRESUMPTIVE NEGATIVE; Methadone Screen,Urine PRESUMPTIVE NEGATIVE; Opiate Screen,Urine PRESUMPTIVE NEGATIVE
[2018-11-30 14:29] LABS: Cannabinoid Screen,Urine PRESUMPTIVE POSITIVE; Cocaine Screen,Urine PRESUMPTIVE POSITIVE
[2018-11-30 14:33] LABS: Bilirubin,Urine NEG (Negative); Blood,Urine SM (Negative); Color,Urine Yellow (Yellow); Mucus,Urine FEW /HPF
[2018-11-30 14:52] VITALS: BP 149/105
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
[2018-11-30 15:08] LABS: Basophils # (Auto) 0.1 K/mm3 (0.0-0.1); Basophils % (Auto) 0.3 % (0.0-1.8); Eosinophils # (Auto) 0.1 K/mm3 (0.0-0.4); Eosinophils % (Auto) 0.3 % (0.0-4.3); Hematocrit 45.4 % (35.5-45.6); Hemoglobin 15.1 gm/dl (11.8-15.2); Lymphocytes # (Auto) 3.1 K/mm3 (1.2-5.4); Mean Corpuscular HGB Conc 33 % (32-34); Mean Corpuscular Volume 86 fl (84-94); Monocytes # (Auto) 1.6 K/mm3 (0.0-0.8); Monocytes % (Auto) 9.3 % (0.0-7.3); Platelet Count 306 K/mm3 (140-440); Red Blood Count 5.26 M/mm3 (3.65-5.03); Red Cell Distribution Width 13.8 % (13.2-15.2)
[2018-11-30 15:30] LABS: BUN/Creatinine Ratio 13; Blood Urea Nitrogen 14 mg/dL (9-20); Calcium 10.3 mg/dL (8.4-10.2); Hemolysis Index 5
== END 2018-11-30 16:05 | disposition left against medical advice (07) ==
LOC: ED 13:28
DX: R63.0 Anorexia (principal); Z53.21 Procedure and treatment not carried out due to patient leaving prior to being seen by health care provider
CPT/HCPCS: 36415; 80048; 80307; 81001; 85025; G0480; 80320